=== PATIENT | male | born 2005 | race Caucasian/White ===

== ENCOUNTER 2024-06-24 16:02 | Emergency (ER) | payer MEDICAID ==
[2024-06-24 16:40] VITALS: TEMP 97.4
--- NOTE | 2024-06-24 16:52 | ERPHSYRPT ---
- History of Present Illness Time Seen by Provider: 06/24/24 16:50 Source: patient Exam Limitations: no limitations Patient Subjective Stated Complaint: pt states that he has had a cough for the past 5 days Triage Nursing Assessment: pt came into the er via ambulance; pt ambulated into the room; pt is axo x4; c/o cough; pt states 6/10 pain with coughing; dry hacking cough present; no respiratory distress present; vitals wnl; skin pale, warm, dry Physician History: 18-year-old male presents to our ED via ambulance for evaluation of a cough. Patient reports that he has been feeling sick. Patient unable to tolerate p.o. Patient states that the cough is dry nonproductive. Patient reports that his mother had similar symptoms. Mother had a viral illness. Unsure if it was influenza or COVID. Patient denies chest pain. No nausea vomiting or diaphoresis. Patient states he feels dehydrated. He feels somewhat weak as well. Patient denies any significant past medical history. Patient voices no other complaints or concerns at this time. Portions of this note were created with voice recognition technology. There may be grammatical, spelling, punctuation or sound alike errors Timing/Duration: today Severity: moderate Modifying Factors: Improves With: nothing Associated Symptoms: denies symptoms Allergies/Adverse Reactions: No Known Drug Allergies Allergy (Unverified 06/24/24 16:28) Home Medications: Buspirone HCl 15 mg PO DAILY 06/24/24 [History] Hydroxyzine HCl 25 mg [Atarax 25 mg] 25 mg PO QID 06/24/24 [History] Hx Tetanus, Diphtheria Vaccination/Date Given: (unknown) Hx Influenza Vaccination/Date Given: No Immunizations Up to Date: No (unknown) Travel Risk - International Travel Have you traveled outside of the country in past 3 weeks: No - Emerging Infectious Disease Are you exhibiting symptoms associated with any current EIDs: Yes Symptoms: Cough: New Onset, Diarrhea - Review of Systems Constitutional: No Symptoms, No Fever, No Chills Eyes: No Symptoms Ears, Nose, & Throat: No Symptoms Respiratory: No Symptoms, No Cough, No Dyspnea Cardiac: No Symptoms, No Chest Pain, No Edema, No Syncope Abdominal/Gastrointestinal: No Symptoms, No Abdominal Pain, No Nausea, No Vomiting, No Diarrhea Genitourinary Symptoms: No Symptoms, No Dysuria Musculoskeletal: No Symptoms, No Back Pain, No Neck Pain Skin: No Symptoms, No Rash Neurological: No Symptoms, No Dizziness, No Focal Weakness, No Sensory Changes Psychological: No Symptoms Endocrine: No Symptoms Hematologic/Lymphatic: No Symptoms Immunological/Allergic: No Symptoms All Other Systems: Reviewed and Negative - Past Medical History Pertinent Past Medical History: Yes Psycho-Social History: Anxiety, Depression - Past Surgical History Past Surgical History: No - Social History Smoking Status: Never smoker Exposure to second hand smoke: Yes Drug Use: none - Social Determinants of Health Will the patient participate in the screening: Yes Do you worry about a steady place to live?: No Do you have any problems with any of the following?: No known problems In the past 12 months,have you had to go without utilities?: No Transportation Issues: No Has anyone in your support network made you feel unsafe?: No Have you or anyone in your house had to go w/o enough food: No - Nursing Vital Signs Nursing Vital Signs: Initial Vital Signs Temperature 97.4 F 06/24/24 16:30 Pulse Rate 111 H 06/24/24 16:30 Respiratory Rate 20 06/24/24 16:30 Blood Pressure 133/80 06/24/24 16:30 O2 Sat by Pulse Oximetry 97 06/24/24 16:30 Pain Scale Pain Intensity 0 - Physical Exam General Appearance: no apparent distress, alert Eye Exam: PERRL/EOMI, eyes nml inspection Ears, Nose, Throat Exam: normal ENT inspection, TMs normal, pharynx normal, moist mucous membranes Neck Exam: normal inspection, non-tender, supple, full range of motion Respiratory Exam: normal breath sounds, lungs clear, airway intact, No respiratory distress Cardiovascular Exam: regular rate/rhythm, normal heart sounds, normal peripheral pulses Gastrointestinal/Abdomen Exam: soft, normal bowel sounds, No tenderness, No mass Back Exam: normal inspection, normal range of motion, No CVA tenderness, No vertebral tenderness Extremity Exam: normal inspection, normal range of motion, pelvis stable Neurologic Exam: alert, oriented x 3, cooperative, normal mood/affect, sensation nml, No motor deficits Skin Exam: normal color, warm, dry, No rash Lymphatic Exam: No adenopathy SpO2 Interpretation: normal SpO2: 97 O2 Delivery: Room Air - Course Nursing assessment & vital signs reviewed: Yes - Radiology Exams Chest X-ray Interpretation: Teleradiologist Report (Normal heart lungs and bony thorax) Ordered Tests: Active Orders 24 hr Category Date Time Status Forensic Toxicologist STAT Care 06/24/24 16:45 Active IV Insertion STAT Care 06/24/24 16:45 Active Pulse Oximetry (ED) STAT Care 06/24/24 16:45 Active CHEST 1 VIEW (PORTABLE) Stat Exams 06/24/24 16:45 Completed CBC W DIFF Stat Lab 06/24/24 17:15 Completed CMP Stat Lab 06/24/24 17:15 Completed Medication Summary Discontinued Medications Generic Name Dose Route Start Last Admin Trade Name Freq PRN Reason Stop Dose Admin Sodium Chloride 1,000 mls @ 999 mls/hr 06/24/24 16:45 06/24/24 17:01 Sodium Chloride 0.9% 1000 Ml IV 06/24/24 17:45 999 mls/hr .Q1H1M STA Administration Sodium Chloride Confirm 06/24/24 16:55 Sodium Chloride 0.9% 1000 Ml Administered 06/24/24 16:56 Dose 1,000 mls @ ud .ROUTE .STK-MED ONE Prednisone 60 mg 06/24/24 17:54 Prednisone 20 Mg Tablet PO 06/24/24 17:55 STAT ONE Lab/Rad Data: Laboratory Result Diagrams 06/24/24 17:15 06/24/24 17:15 Laboratory Results 06/24/24 06/24/24 06/24/24 Range/Units 17:15 17:15 16:45 WBC 7.1 (4.23-9.07) x10^3/uL RBC 4.78 (4.63-6.08) x10^6/uL Hgb 14.1 (13.7-17.5) g/dL Hct 42.6 (40.1-51.0) % MCV 89.1 (79.0-92.2) fL MCH 29.5 (25.7-32.2) pg MCHC 33.1 (32.3-36.5) g/dL RDW 12.2 (11.6-14.4) % Plt Count 276 (163-337) x10^3/uL MPV 9.9 (9.4-12.4) fL Gran % 86.9 H (34.0-67.9) % Immature Gran % (Auto) 0.4 (0.001-0.429) % Nucleat RBC Rel Count 0.0 (0.00-0.2) % Eos # (Auto) 0.01 L (0.04-0.54) x10^3/uL Immature Gran # (Auto) 0.03 (0.001-0.031) x10^3u/L Absolute Lymphs (auto) 0.52 L (1.32-3.57) x10^3/uL Absolute Monos (auto) 0.36 (0.30-0.82) x10^3/uL Absolute Nucleated RBC 0.00 (0.00-0.012) x10^3u/L Lymphocytes % 7.4 L (21.8-53.1) % Monocytes % 5.1 L (5.3-12.2) % Eosinophils % 0.1 L (0.8-7.0) % Basophils % 0.1 L (0.2-1.2) % Absolute Granulocytes 6.13 H (1.78-5.38) x10^3/uL Basophils # 0.01 (0.01-0.08) x10^3/uL Sodium 141 (135-145) mmol/L Potassium 4.1 (3.5-5.1) mmol/L Chloride 103 (98-107) mmol/L Carbon Dioxide 27 (22-30) mmol/L Anion Gap 15.5 H (5-15) MEQ/L BUN 10 (9-20) mg/dL Creatinine 0.94 (0.66-1.25) mg/dL Estimated GFR 119.8 ML/MIN Glucose 100 (74-106) mg/dL Calcium 8.7 (8.4-10.2) mg/dL Total Bilirubin 0.50 (0.2-1.3) mg/dL AST 66 H (17-59) U/L ALT 67 H (0-50) U/L Alkaline Phosphatase 80 (38-126) U/L Serum Total Protein 7.6 (6.3-8.2) g/dL Albumin 4.6 (3.5-5.0) g/dL Influenza Type A Ag POSITIVE A (NEGATIVE) Influenza Type B Ag NEGATIVE (NEGATIVE) RSV (PCR) NEGATIVE (NEGATIVE) SARS-CoV-2 (PCR) NEGATIVE (NEGATIVE) - Progress Progress: improved Progress Note: 18-year-old male presents to our ED for evaluation of a cough. Patient is influenza A positive. Laboratory workup essentially nonremarkable. Chest x-ray negative. Patient received a dose of prednisone for cough. A prescription for prednisone forwarded to patient's pharmacy. Patient reassessed. He is resting comfortably. Patient denies pain no shortness of breath no nausea no vomiting. No indication for further workup at this time. Patient agrees to follow-up with his primary care doctor within 48 hours for reevaluation. Portions of this note were created with voice recognition technology. There may be grammatical, spelling, punctuation or sound alike errors Complexity of problem addressed is moderate acute complicated. No critical care time. Complex of data reviewed and analyzed is moderate. Test ordered chest reviewed results analyzed and correlated clinically with history and physical exam. Risk of complication and or risk of morbidity/mortality of patient man agement is low. Vital stable. Time spent to discharge patient is approximately 15 minutes. Plan of care established for shared decision making. No social determinants of health present to impede follow-up. Portions of this note were created with voice recognition technology. There may be grammatical, spelling, punctuation or sound alike errors 06/24/24 17:57 06/24/24 17:58 Counseled pt/family regarding: lab results - Departure Departure Disposition: Home Clinical Impression: Cough, Influenza A Condition: Stable Critical Care Time: No Referrals: HASEEB BURGESS [Primary Care Provider] - Follow up/PCP as directed Additional Instructions: Discharge/Care Plan RADHA PERRY CHERYL was seen on 06/24/24 in the Emergency Room. The patient was counseled regarding Diagnosis,Lab results, Imaging studies, need for follow up and when to return to the Emergency Room. Prescriptions given: Discharge Note I have spoken with the patient and/or caregivers. I have explained the patient's condition, diagnosis and treatment plan based on the information available to me at this time. I have answered the patient's and/or caregiver's questions and addressed any concerns. The patient and/or caregivers have as good understanding of the patient's diagnosis, condition and treatment plan as can be expected at this point. The vital signs have been stable. The patient's condition is stable and appropriate for discharge from the emergency department. The patient will pursue further outpatient evaluation with the primary care physician or other designated or consulting physician as outlined in the discharge instructions. The patient and/or caregivers are agreeable to this plan of care and follow-up instructions have been explained in detail. The patient and/or caregivers have received these instruction. The patient/and or caregivers are aware that any significant change in condition or worsening of symptoms should prompt an immediate return to this or the closest emergency department or call 911. Prescriptions: Prednisone 10 mg [Deltasone 10 mg] 40 mg PO DAILY 3 Days #12 tablet
[2024-06-24] MEDS ORDERED: Sodium Chloride 0.9% 1000 ML 1,000 ML ONE (16:55)
[2024-06-24] MEDS: Sodium Chloride 0.9% 1000 ML 1,000 ML IV STA (17:01)
--- NOTE | 2024-06-24 17:13 | XRAY ---
Indication: Cough. Comparison: None Portable chest demonstrates normal heart, lungs, and bony thorax.
[2024-06-24 17:28] LABS: INFLUENZA B NEGATIVE (NEGATIVE); RESPIRATORY SYNCTIAL VIRUS NEGATIVE (NEGATIVE); SARS-CoV-2 Xpert Express NEGATIVE (NEGATIVE)
[2024-06-24 17:34] LABS: Absolute Neutrophil Ct (ANC) 6.13 x10^3/uL (1.78-5.38); BASOPHIL % 0.1 % (0.2-1.2); Basophil (Absolute #) 0.01 x10^3/uL (0.01-0.08); Eosinophil % 0.1 % (0.8-7.0); Eosinophil (Absolute #) 0.01 x10^3/uL (0.04-0.54); Hematocrit 42.6 % (40.1-51.0); Hemoglobin 14.1 g/dL (13.7-17.5); IMMATURE GRAN # 0.03 x10^3u/L (0.001-0.031); IMMATURE GRAN % 0.4 % (0.001-0.429); Lymphocyte (Absolute #) 0.52 x10^3/uL (1.32-3.57); Lymphocytes % 7.4 % (21.8-53.1); Mean Cell Volume 89.1 fL (79.0-92.2); Mean Corpuscular Hemoglobin 29.5 pg (25.7-32.2); Mean Corpuscular Hgb Concent. 33.1 g/dL (32.3-36.5); Mean Platelet Volume 9.9 fL (9.4-12.4); Monocyte (Absolute #) 0.36 x10^3/uL (0.30-0.82); Monocytes % 5.1 % (5.3-12.2); Neutrophil % 86.9 % (34.0-67.9); Platelet Count 276 x10^3/uL (163-337); Red Blood Count 4.78 x10^6/uL (4.63-6.08); Red Cell Distribution Width 12.2 % (11.6-14.4); White Blood Count 7.1 x10^3/uL (4.23-9.07)
[2024-06-24 17:34] LABS: INFLUENZA A POSITIVE (NEGATIVE)
[2024-06-24 17:46] LABS: ALBUMIN 4.6 g/dL (3.5-5.0); ANION GAP 15.5 MEQ/L (5-15); BILIRUBIN,TOTAL 0.5 mg/dL (0.2-1.3); Calcium 8.7 mg/dL (8.4-10.2); Creatinine 1 0.94 mg/dL (0.66-1.25); EST GLOMERULAR FILTRATION RATE 119.8 ML/MIN; Potassium 4.1 mmol/L (3.5-5.1); Total Protein 7.6 g/dL (6.3-8.2)
[2024-06-24] MEDS: DELTASONE 20 MG PO ONE (17:57)
[2024-06-24] MEDS ORDERED: DELTASONE 20 MG ONE (17:57)
[2024-06-24 18:01] VITALS: BP 113/52; PULSE 113; RESP 16; O2SAT 96
[2024-06-24 20:58] LABS: Slide Review 1 YES
== END 2024-06-24 18:07 | disposition home or self-care (01) ==
LOC: ED 16:02
DX: J10.1 Influenza due to other identified influenza virus with other respiratory manifestations (principal); R05.1 Acute cough; R53.1 Weakness; Z79.899 Other long term (current) drug therapy
CPT/HCPCS: 0241U; 36415; 71045; 80053; 85025; 93041; 94760; 96360; 99285; 99284; A9270-GY